=== PATIENT | male | born 1950 | race Two or more races ===

== ENCOUNTER 2024-03-08 08:29 | Emergency (ER) | payer OTHER ==
[~2024-03-08] VITALS: Ht 165.1 cm; Wt 68.0 kg
[~2024-03-08 08:29] MED LIST: LOSARTAN POTASS25 MG; METFORMIN HCL500 MG; RAMIPRIL10 MG
[2024-03-08] MEDS ORDERED: JARDIANCE10 MG (08:33)
[2024-03-08] MEDS ORDERED: VALSARTAN4 MG/1 ML PO (08:33)
[2024-03-08] MEDS ORDERED: JANUMET 50-1,01 EACH PO (08:33)
[2024-03-08] MEDS ORDERED: AMLODIPINE-OLM1 EAC2 (08:33)
[2024-03-08] MEDS ORDERED: KETOROLAC TROMETHAMINE 60 MG VIAL IM ONE ×2 (09:44→09:45)
[2024-03-08] MEDS ORDERED: KETO10TA2 PO (10:13)
[2024-03-08] MEDS ORDERED: VOLTAREN ARTHRI20 GM TOP (10:13)
== END 2024-03-08 10:22 | disposition home or self-care (01) ==
LOC: ER 08:30
DX: S63.591A Other specified sprain of right wrist, initial encounter (principal); S66.811A Strain of other specified muscles, fascia and tendons at wrist and hand level, right hand, initial encounter; Y93.B9 Activity, other involving muscle strengthening exercises; Y92.39 Other specified sports and athletic area as the place of occurrence of the external cause; E11.9 Type 2 diabetes mellitus without complications; Z79.84 Long term (current) use of oral hypoglycemic drugs; I10 Essential (primary) hypertension
CPT/HCPCS: 36415; 73090; 73110; 96372; 99283; J1885